=== PATIENT | female | born 1945 ===

== ENCOUNTER 2024-08-08 05:34 | Emergency (ER) | payer SELFPAY ==
[2024-08-08 05:35] VITALS: BP 145/59
[2024-08-08 05:44] VITALS: BMI 18.6
[2024-08-08 06:00] VITALS: BP 110/72
--- NOTE | 2024-08-08 06:18 | ED.GENMED ---
History of Present Illness
General
Chief Complaint: Back Pain
Source: patient
Exam Limitations: none
Time Seen by Provider: 08/08/24 06:04
Nursing documentation reviewed up to this point in time: agreed with
History of Present Illness
History of Present Illness:
Patient is an 79-year-old female who presents to the emergency department complaining of back pain, constipation and anxiety. Patient typically goes to another hospital but decided to come here this morning. Patient states her back started hurting
last night. Patient when laying still has no pain. Patient states it only hurts with walking. Patient complains of pain in her right lower back without numbness or paresthesias. Patient denies any incontinence. Patient denies any recent
illnesses or injuries. Patient states that last night she fell asleep and woke up with a panic attack. Patient took her blood pressure and pulse. Patient's heart rate was 102 and her systolic blood pressure was around 165. Patient took a
propranolol and felt better almost immediately. Patient is supposed to be on propranolol daily but takes it on a as needed basis. Patient denies any back pain or anxiety at this moment. Patient states she is getting anxious because she has been
constipated for few days and is concerned that she has an obstruction. Patient has had constipation in the past requiring an enema. Patient denies any abdominal pain, nausea or vomiting. Patient denies any abdominal bloating. Patient denies
fever or chills. Patient denies chest pains or shortness of breath.
Past History
Past History
ED Past Medical History: Psychiatric (Anxiety, depression) and Other (Back pain, palpitations)
Social History
Tobacco: Former smoker
Review of Systems
Review of Systems
All Other Systems: ROS reviewed and negative except as documented in HPI and ROS
Constitutional: Reports no symptoms
EENT: Reports no symptoms
Respiratory: Reports no symptoms
Cardiac: Reports palpitations; Denies chest pain
ABD/GI: Reports constipated; Denies abdominal pain, nausea, vomiting, diarrhea, bloody stools or black stools
: Reports no symptoms
Musculoskeletal: Reports back pain
Skin: Reports no symptoms
Neurological: Reports no symptoms
Hematologic/Lymphatic: Reports no symptoms
Psychiatric: Reports anxiety
Phy Exam
Physical Exam
Physical Exam:
Physical Exam
General: minimal distress, alert and appropriate, elderly and frail, well hydrated
HENT: Normocephalic, supple with no lymphadenopathy, no thyromegaly
Eyes: Clear sclera, conjuctiva without injection
Heart: Regular rhythm and rate. No S3, S4. No murmur. No NVD
Lungs: No respiratory distress, no stridor, lung sounds clear and equal bilaterally
Abdomen: Soft, nontender, no organomegaly, no CVA tenderness, BS good
Neuro: Alert and oriented x 3, CN II - XII intact, no motor focality, no sensory deficit. Cerebellum intact
Skin: no rash
Psychiatric: well kept. interactive and cooperative, mildly anxious
Extremities: No cyanosis, tenderness. +1-2 pitting edema of the bilateral feet and ankles that is chronic, right greater than left
Musculoskeletal: Moderate kyphoscoliosis. No cervical, thoracic or lumbar spine tenderness. No SI joint tenderness. Patient has no pain at this time.
Course
Orders/Labs/Results
Orders:
Orders
08/08/24 06:59
Lumbar Spine Complete, 4 View [CR Lumbar Spine Comp Min 4 Vw*] Urgent
Comment:
Reason For Exam: back pain
08/08/24 07:48
Complete Blood Count/With Diff Urgent
Comprehensive Metabolic Panel Urgent
TSH Reflex To Free T4 Urgent
Urinalysis Reflex To Culture Urgent
Date Specimen was Collected: 08/08/24
Time Specimen was Collected: 07:22
Abnormal Lab Results
08/08/24
07:48
WBC 3.7 L 10^3/uL
(4.8-10.8)
RBC 4.11 L 10^6/uL
(4.20-5.40)
Hgb 10.5 L g/dL
(12.0-16.0)
Hct 33.6 L %
(37.0-47.0)
MCH 25.5 L pg
(27.0-31.0)
MCHC 31.3 L g/dL
(33.0-37.0)
RDW 14.8 H %
(11.5-14.5)
Absolute Lymphs (auto) 1.1 L 10^3/uL
(1.2-3.4)
Glucose 118 H mg/dl
(70-99)
08/08/24 07:48
08/08/24 07:48
Vital Signs
Initial and Last Documented VS:
Initial Vital Signs
Temp Pulse Resp BP Pulse Ox
97.0 F 68 20 145/59 99
08/08/24 05:35 08/08/24 05:35 08/08/24 05:35 08/08/24 05:35 08/08/24 05:35
Last Documented Vital Signs
Temp Pulse Resp BP Pulse Ox
97.0 F 68 20 110/72 100
08/08/24 05:35 08/08/24 05:35 08/08/24 05:35 08/08/24 06:00 08/08/24 06:15
*Radiology
Radiology exam reviewed: radiology read reviewed
*Pulse Oximetry
Patient hypoxic: no
*EKG
Interpreted by ED Provider?: NA
*Chicken Sexer Interpretation
Rate: Chicken Sexer- N/A
*Critical Care Note
Total Time (30-74mins, 75-104mins- exclusive of procedures): Not Applicable
Update Note
Update Note:
Patient feeling better at this time. Patient has been taking MiraLAX without improvement. The x-ray does show some increase in stool. 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
ED Attending Note
-
Portions of this chart may have been created with voice recognition software.� Occasional wrong word or��sound alike� substitutions may have occurred due to the inherent limitations of voice recognition software.
Discharge Plan
Departure
Patient Disposition: Home (Routine Discharge)
Date of Disposition: 08/08/24
Time of Disposition: 09:11
Patient with high blood pressure during this ER visit?: No
Condition: Good
Covid-19: Not Applicable
Discharge Problem:
Back pain, Constipation
Instructions: Low Back Pain (DC), Generalized Anxiety Disorder (DC), Constipation, Adult ED, High-fiber diet
Prescriptions:
New
bisacodyl [Dulcolax (bisacodyl)] 10 mg suppository
10 mg PA DAILY PRN (Reason: Constipation) Qty: 12 0RF
Referrals:
UNKNOWN - PT NOT,INTERVIEWE [Family Provider] -
Activity Restrictions/Additional Instructions:
Follow-up with your family physician in 3 to 5 days. Acetaminophen 650 mg or ibuprofen 400 mg every 6 hours for discomfort. You may use heat or ice to the area of your back. Make sure to drink plenty of fluids. Continue the MiraLAX.
Interventions
Interventions:
*Risk Screen - Suicide Last Done: 08/08/24 05:35
*General Assessment Last Done: 08/08/24 05:35
*Neglect/Abuse Screening Last Done: 08/08/24 05:35
ED- Fall Risk Assessment Last Done: 08/08/24 06:13
*ED COVID-19 Vaccine History Last Done: 08/08/24 05:42
ED-Musculoskeletal Assessment Last Done: 08/08/24 06:13
ED-Psychological Assessment Last Done: 08/08/24 06:13
Discharge Date and Time
Print Language: PORTUGUESE
[2024-08-08 08:07] LABS: % Basophils 0.8 % (0-2); % Eosinophils 4.7 % (0-6); % Immature Granulocytes 0.3 % (0-0.5); % Lymphocytes 29.6 % (20.5-51.1); % Monocytes 6.8 % (1.7-9.3); % Neutrophils 57.8 % (42.2-75.2); Absolute Eosinophils 0.2 10^3/uL (0-0.7); Absolute Lymphocytes 1.1 10^3/uL (1.2-3.4); Absolute Monocytes 0.3 10^3/uL (0.1-0.6); Absolute Neutrophils 2.1 10^3/uL (1.4-6.5); Hematocrit 33.6 % (37.0-47.0); Hemoglobin 10.5 g/dL (12.0-16.0); Mean Corp Hgb Conc. 31.3 g/dL (33.0-37.0); Mean Corpuscular Hgb 25.5 pg (27.0-31.0); Mean Corpuscular Volume 81.8 fL (81.0-99.0); Mean Platelet Volume 10.4 fL (7.4-10.4); Nucleated Red Blood Cells % 0 %; Platelet Count 175 10^3/uL (130-400); Red Blood Cell Count 4.11 10^6/uL (4.20-5.40); Red Cell Dist. Width 14.8 % (11.5-14.5); White Blood Cell Count 3.7 10^3/uL (4.8-10.8)
[2024-08-08 08:17] LABS: ALT (SGPT) 12 U/L (0-35); AST (SGOT) 26 U/L (14-36); Albumin 4.1 g/dl (3.5-5.0); Alkaline Phosphatase 68 U/L (38-126); Blood Urea Nitrogen 16 mg/dl (7-17); Calcium 10.2 mg/dl (8.4-10.2); Carbon Dioxide 23 mmol/L (22-30); Chloride 106 mmol/L (98-107); Estimated Creatinine Clearance 60 ml/min; Glucose 118 mg/dl (70-99); Sodium 140 mmol/L (135-145); Total Bilirubin 0.4 mg/dl (0.2-1.3); Total Protein 6.6 g/dl (6.3-8.2); eGFR > 60.00
[2024-08-08 08:19] LABS: Urine Albumin Negative (Neg - Trace); Urine Bilirubin Negative (Negative); Urine Character Clear (Clear); Urine Color Straw; Urine Glucose Negative (Negative); Urine Ketone Negative (Negative); Urine Leukocyte Negative (Negative); Urine Nitrite Negative (Negative); Urine Occult Blood Negative (Negative); Urine Urobilinogen Negative (Neg - 1+)
[2024-08-08 08:48] LABS: TSH Reflex To Free T4 2.81 uIU/ml (0.47-4.68)
== END 2024-08-08 10:10 | disposition home or self-care (01) ==
LOC: EMR 05:34
PROVIDERS: EMERGENCY PHYSICIAN Emergency Medicine
DX: G89.29 Other chronic pain (principal); M54.9 Dorsalgia, unspecified; K59.00 Constipation, unspecified; F41.9 Anxiety disorder, unspecified; Z87.891 Personal history of nicotine dependence
CPT/HCPCS: 99283; 72110; 80053; 81003; 84443; 85025